=== PATIENT | female | born 1995 | race Caucasian/White ===

== ENCOUNTER 2019-11-15 01:06 | Inpatient (IN) | payer BC ==
[~2019-11-15] VITALS: Ht 160 cm; Wt 72.3 kg
[2019-11-15] VITALS (19 sets, daily range): BP systolic 105–146; BP diastolic 49–80; PULSE 72–123; TEMP 98–98.4
--- NOTE | 2019-11-15 00:20 | NUR ---
G1 at 40 weeks gestation to LDR5 with c/o contractions and SROM at 2230. Patient changed into gown and wedged to left side in bed. EFMs explained and applied. FHR 140 bpm and reactive. CTX q3-5 minutes apart, patient breathing through them. VSS. SVE 5/90/-2 with moderate amount of clear fluid noted. Assessment completed. Plan of care reviewed with patient and spouse.
--- NOTE | 2019-11-15 01:51 | NUR ---
0140 FEMI Connolly to room to place epidural. Patient sits upright on the edge of the bed. FHR difficult to monitor in this position and intermittently traces maternal HR as it coorelates with maternal spO2 tracing. 0151 Single shot by FEMI Connolly. See anesthesia record for details.
[2019-11-15] MEDS ORDERED: PRENATAL TABLET PO (02:40)
[2019-11-15 03:03] LABS: BASO % 0.4 % (0.0-2.0); EOS # 0.1 (0.0-0.7); EOS % 0.5 % (0-4.0); GRAN # 7.6 (1.4-6.5); GRAN % 70.5 % (42.2-75.2); HEMATOCRIT 39.2 % (37.0-47.0); HEMOGLOBIN 13.7 g/dl (12.5-16.0); LYMPH # 2.2 (1.2-3.4); LYMPH % 20.7 % (20.0-51.0); MEAN CELL VOLUME 94 fl (80.0-100.0); MEAN CORPUSCULAR HEMOGLOBIN 33 pg (27.0-31.0); MEAN CORPUSCULAR HGB CONC 35 g/dl (33.0-37.0); MEAN PLATELET VOLUME 10.7 fl (7.4-10.4); MONO # 0.8 (0.1-0.6); MONO % 7.4 % (1.7-9.3); PLATELET COUNT 226 K/mm3 (130-400); RED BLOOD COUNT 4.18 M/mm3 (4.10-5.30); REDCELL DISTRIBUTION WIDTH-CV 11.7 % (11.5-14.5)
--- NOTE | 2019-11-15 03:10 | NUR ---
Recurrent late FHR decelerations continue. 0305 SVE - complete/+2. Patient pushes with contraction, after pushing FHR down to 60 bpm for 3 minutes with a gradual return to baseline over the next [address] Erwin called and updated. He is on his way to the hospital.
--- NOTE | 2019-11-15 03:59 | NUR ---
0325 Patient pushing with contractions. 0335 Dr. Erwin on unit. Reviews FHR tracing and pushing efforts, remains on unit. Patient continues to push with contractions. 0350 Dr. Erwin to room for delivery, patient prepped. 0359 Spontaneous vaginal delivery of viable female by Dr. Erwin. Cord clamped and cut and to the care of the nursery RN. 0407 Spontaneous delivery of placenta by Dr. Erwin. Pitocin infusing at 333ml/hr per orders and protocol. Fundus firm, lochia WNL. Repair of 2nd degree perineal laceration and bilateral labial lacerations by Dr. Erwin.
--- NOTE | 2019-11-15 18:45 | NUR ---
Report recieved at 1845. Pt denied bedside shift report. Informed pt was going to attempt to breastfeed during report. At 1900 introduced self to pt and updated whiteboard. Reports going to attempt to breastfeed. VS obtaind and assessment completed. Motrin administered per request. Denied further questions or concerns.
[2019-11-16] VITALS: BP 128/77; PULSE 85; TEMP 98.4
[2019-11-16 08:40] VITALS: BP 118/73; PULSE 91; TEMP 98.1
[2019-11-16] MEDS ORDERED: IBU600 MG PO (08:49)
--- NOTE | 2019-11-16 09:10 | NUR ---
Initial visit; Parents thanked Grain Commodity Manager for offering congratulations and God's blessings for the of their daughter. Grain Commodity Manager thanked family for choosing [facility].
== END 2019-11-16 12:50 | disposition home or self-care (01) | DRG 807 ==
LOC: LDRO 01:06 → LDR 02:38 → OB 06:30
PROVIDERS: ADMIT Obstetrics & Gynecology
PROC: 10E0XZZ Delivery of Products of Conception, External Approach (ICD-10-PCS; principal; 2019-11-15)
PROC: 0KQM0ZZ Repair Perineum Muscle, Open Approach (ICD-10-PCS; 2019-11-15)
DX: O70.0 First degree perineal laceration during delivery (principal); Z37.0 Single live birth; Z3A.40 40 weeks gestation of pregnancy
CPT/HCPCS: J2590; J7120

== ENCOUNTER 2021-05-11 10:27 | Inpatient (IN) | payer BC ==
[2021-05-11] VITALS (13 sets, daily range): BP systolic 106–124; BP diastolic 51–79; PULSE 64–102; TEMP 97.7–98.4
[~2021-05-11] VITALS: Ht 160 cm; Wt 75.9 kg
[~2021-05-11 10:27] MED LIST: IBU600 MG PO; PRENATAL TABLET PO
[2021-05-11 11:00] LABS: BASO # 0.1 K/mm3 (0.0-0.2); BASO % 0.4 % (0.0-2.0); EOS % 0.3 % (0.0-4.0); GRAN # 9.9 K/mm3 (1.4-6.5); GRAN % 81.9 % (42.2-75.2); HEMATOCRIT 37.3 % (37.0-47.0); HEMOGLOBIN 12.9 g/dl (12.5-16.0); LYMPH # 1.5 K/mm3 (1.2-3.4); LYMPH % 12.5 % (20.0-51.0); MEAN CELL VOLUME 89 fl (80.0-100.0); MEAN CORPUSCULAR HEMOGLOBIN 31 pg (27-31); MEAN CORPUSCULAR HGB CONC 35 g/dl (33.0-37.0); MEAN PLATELET VOLUME 10.1 fl (7.4-10.4); MONO # 0.6 K/mm3 (0.1-0.6); MONO % 4.6 % (1.7-9.3); PLATELET COUNT 215 K/mm3 (130-400); RED BLOOD COUNT 4.19 M/mm3 (4.10-5.30); REDCELL DISTRIBUTION WIDTH-CV 11.9 % (11.5-14.5)
--- NOTE | 2021-05-11 12:20 | NUR ---
1040 PATIENT HERE FOR COMPLAINTS THAT CONTRACTIONS HAVE GOT MUCH MORE INTENSE AND FEELING PRESSURE ALSO. SVE 7/100/0 BULGY BAG NOTED. EFM ON FHT 150 BABY VERY ACTIVE AND ACCELERATIONS NOTED. DR WILKINS UPDATED AND ORDERS GIVEN.
--- NOTE | 2021-05-11 12:51 | NUR ---
1045 IV STARTED IN LEFT WRIST. LR STARTED AT THIS TIME. Tre JOHNSON CRNA AT BEDSIDE FOR EPIDURAL PLACEMENT. SITS UP ON EDGE OF BED. TOLERATES WELL. SINGLE SHOT GIVEN BY DRAW OPERATOR AT 1055
--- NOTE | 2021-05-11 12:59 | NUR ---
1110 DR WILKINS AT BEDSIDE AROM WITH AMNIOHOOK. MECONIUM FLUID NOTED AT THIS TIME. RICHARD PLACED BY THIS NURSE.
--- NOTE | 2021-05-11 13:22 | NUR ---
1125 PEANUT BALL PLACED PATIENT LL AT THIS TIME. 1130 SVE COMPLETE/100/+2 DR WILKINS CALLED TO ROOM AT THIS TIME FOR DELIVERY. PATIENT FEELING TONS OF PRESSURE. FHT 130 WITH VARIABLES NOTED WITH EACH CONTRACTION. 1132 DR WILKINS AT BEDSIDE. PREP PATIENT FOR DELIVERY. WILL PUSH WITH EACH CONTRACTION. 1135 BABY BOY DELIVERED WITH HAND BY HEAD AND NUCHAL TIMES ONE THAT WAS CLAMPED AND CUT BY DR WILKINS. BABY TO MOM CHEST SKIN TO SKIN. STRONG CRY NOTED. 1137 PLACENTA DELIVERED AT THIS TIME AND PITOCIN STARTED AT 333 PER PROTOCOL. FUNDUS FIRM AND BLEEDING WNL. NO REPAIR DONE AT THS TIME. BABY REMAINS SKIN TO SKIN AT THIS TIEM.
--- NOTE | 2021-05-11 15:27 | NUR ---
1500 REPORT GIVEN TO Jessica VARGAS LPN TO ASSUME CARE AT THIS TIME. LEGS REMIAN NUMB AT THIS TIME FROM EPIDURAL SO UNABLE TO MOVE TO ROOM AT THIS TIME
[2021-05-12 04:30] VITALS: BP 100/72; PULSE 76; TEMP 97.7
[2021-05-12 07:43] VITALS: BP 88/52; PULSE 76; TEMP 98.1
[2021-05-12] MEDS ORDERED: IBU800 M1 PO (09:46)
== END 2021-05-12 16:43 | disposition home or self-care (01) | DRG 807 ==
LOC: LDRO 10:27 → LDR 10:49 → OB 10:49
PROVIDERS: ADMIT Obstetrics & Gynecology
PROC: 10E0XZZ Delivery of Products of Conception, External Approach (ICD-10-PCS; principal; 2021-05-11)
DX: O77.0 Labor and delivery complicated by meconium in amniotic fluid (principal); Z37.0 Single live birth; O69.1XX0 Labor and delivery complicated by cord around neck, with compression, not applicable or unspecified; Z3A.39 39 weeks gestation of pregnancy
CPT/HCPCS: J2590; J7120

== ENCOUNTER 2023-11-15 06:25 | Inpatient (IN) | payer BC, OTHER ==
[~2023-11-15] VITALS: Ht 160 cm; Wt 77.7 kg
[2023-11-15] VITALS (30 sets, daily range): BP systolic 101–1223; BP diastolic 51–89; PULSE 61–103; TEMP 98–98.7
[~2023-11-15 06:25] MED LIST changes: +IBU800 M1 PO
--- NOTE | 2023-11-15 06:30 | NUR ---
0630PT AMBULATORY TO UNIT WITH SPOUSE AND SISTER FOR SCHEDULED INDUCTION. PT CHANGED INTO GOWN. PT COMFORTABLE IN BED. 0635THIS RN AT BEDSIDE TO PLACE TOCO AND EFM. EFM TRACING CAT I. POSITIVE ACCELS NOTED. NO DECELS NOTED. PT REPORTS POSITIVE MOVEMENT. PT REPORTS FEELING THE OCCASIONAL CTX, BUT NOTHING REGULAR. PT DENIES LOF AND DENIES VAGINAL BLEEDING. PT VITAL SIGNS STABLE. 0645THIS RN DISCUSSES POC WITH PT AND SPOUSE. PT REPORTS UNDERSTANDING AND AGREEMENT. 0705IV STARTED PER THIS RN IN RIGHT WRIST. 0710FIRST BAG OF IVF STARTED. FIRST DOES OF PENICILLIN G STARTED. 0720SVE PER THIS RN. /-3. PT TOLERATED WELL. 0722PITOCIN STARTED AT THIS TIME.
[2023-11-15] MEDS ORDERED: LR & Oxytocin 500 ML IV SCH ×2 (06:45)
[2023-11-15] MEDS ORDERED: LR 1,000 ML IV SCH ×2 (06:45→07:30)
[2023-11-15] MEDS ORDERED: Penicillin G Potassium 5,000,000 UNITS in NS 100 ML IV ONE (06:45)
[2023-11-15] MEDS ORDERED: Penicillin G Potassium 2,500,000 UNITS in NS 100 ML IV SCH ×2 (06:45→10:32)
[2023-11-15 07:29] LABS: BASO % 0.6 % (0.0-2.0); EOS # 0.1 K/mm3 (0.0-0.7); EOS % 1.1 % (0.0-4.0); GRAN # 5.2 K/mm3 (1.4-6.5); GRAN % 73.6 % (42.2-75.2); HEMOGLOBIN 12.3 g/dl (12.5-16.0); LYMPH # 1.2 K/mm3 (1.2-3.4); LYMPH % 17.4 % (20.0-51.0); MEAN CELL VOLUME 92 fl (80.0-100.0); MEAN CORPUSCULAR HEMOGLOBIN 32 pg (27-31); MEAN CORPUSCULAR HGB CONC 35 g/dl (33.0-37.0); MEAN PLATELET VOLUME 9.8 fl (7.4-10.4); MONO # 0.5 K/mm3 (0.1-0.6); MONO % 6.7 % (1.7-9.3); PLATELET COUNT 179 K/mm3 (130-400); RED BLOOD COUNT 3.86 M/mm3 (4.10-5.30); REDCELL DISTRIBUTION WIDTH-CV 12.3 % (11.5-14.5)
[2023-11-15 07:30] LABS: HEMATOCRIT 35.5 % (37.0-47.0)
--- NOTE | 2023-11-15 10:25 | NUR ---
1010-1025PT AMBULATORY IN HALLS ACCOMPANIED BY SPOUSE. EFM DIFFICULT TO TRACE DUE TO MOVEMENT. 1025PT STANDING AT SIDE OF BED. EFM TRACING CAT I.
[2023-11-15] MEDS ORDERED: ePHEDrine 50 MG/10 ML VIAL IV PRN (10:30)
[2023-11-15] MEDS ORDERED: Ondansetron 4 MG/2 ML VIAL IV PRN (10:30)
[2023-11-15] MEDS ORDERED: diphenhydrAMINE 25 MG CAP PO PRN (10:30)
[2023-11-15] MEDS ORDERED: diphenhydrAMINE 50 MG/ML 1 ML VIAL IV PRN (10:30)
[2023-11-15] MEDS ORDERED: Naloxone 0.4 MG/ML VIAL IV PRN ×2 (10:30→13:15)
--- NOTE | 2023-11-15 11:01 | NUR ---
1052DUANE FLOORPERSON NOTIFIED OF PT REQUEST FOR EPIDURAL. 1053SECOND BAG OF IVF STARTED. 1056DUANE FLOORPERSON AT BEDSIDE. PT SITTING ON SIDE OF BED. PT VITAL SIGNS STABLE. PULSE OX PLACED. 1101TEST DOSE ADMINISTERED AT THIS TIME PER JENNIFER KAHN. PT TOLERATED WELL. 1105PT BACK TO BED. PT POSITIONED WEDGE LEFT. 1110PT COMFORTABLE WITH CTX.
[2023-11-15] MEDS ORDERED: ROPivacaine PF 0.2% 200 ML IV ONE (11:10)
--- NOTE | 2023-11-15 11:22 | NUR ---
1120DR IBRAHIMA AT BEDSIDE. DISCUSSES POC WITH PT. PT VERBALIZES UNDERSTANDING. 1122SVE PER DR ALEXANDRA. -/-2. AROM AT THIS TIME PER DR ALEXANDRA. MODERATE AMOUNT OF CLEAR FLUID NOTED. PT TOLERATED WELL.
--- NOTE | 2023-11-15 12:15 | NUR ---
1210THIS RN AT BEDSIDE. DISCUSSES POC WITH PT. PT VERBALIZES UNDERSTANDING. 1215FOLEY PLACED AT THIS TIME PER THIS RN. SVE PER THIS RN. . PT TOLERATED WELL. PT VITAL SIGNS STABLE. EFM TRACING CAT I, WITH RECURRENT EARLY DECELS.
--- NOTE | 2023-11-15 12:57 | NUR ---
1242PT CALLS OUT STATING SHE FEELS QUITE A BIT OF RECTAL PRESSURE. 1245SVE PER THIS RN. /+1. DR ALEXANDRA NOTIFIED AND ON HIS WAY. NURSERY AND CHARGE NURSES NOTIFIED. 1248PITOCIN TURNED OFF. ROOM SET UP FOR DELIVERY. 1253DR IBRAHIMA ON UNIT. NURSERY AND CHARGE NURSES AT BEDSIDE. 1254DR IBRAHIMA AT BEDSIDE. RICHARD REMOVED PER THIS RN. ROOM AND PT SET UP FOR IMPENDING DELIVERY. 1256DR IBRAHIMA AND THIS RN PUSHING WITH PT AT THIS TIME. GOOD MATERNAL EFFORT NOTED. 1257SVD OF VIABLE MALE PER DR ALEXANDRA. INFANT PLACED ON MATERNAL ABDOMEN. CARE ASSUMED BY NURSERY. 1301SVD OF PLACENTA PER DR ALEXANDRA. PERINEUM INTACT. FUNDUS FIRM AT U. LOCHIA WNL. 1304BED AND ROOM PUT BACK TOGETHER. PERICARE PERFORMED. ICE PACK PLACED ON PERINEUM. PT COMFORTABLE IN BED. FUNDUS FIRM AT U. LOCHIA WNL. PT VITAL SIGNS STABLE.
[2023-11-15] MEDS ORDERED: Tdap Vaccine 0.5 ML SYRINGE IM SCH (13:15)
[2023-11-15] MEDS ORDERED: Measles/Mumps/Rubella Virus Vaccine Live w Diluent 0.5 ML VIAL SQ SCH (13:15)
[2023-11-15] MEDS ORDERED: Witch Hazel 50% Pads Bulk TUB TP PRN (13:15)
[2023-11-15] MEDS ORDERED: Loratadine 10 MG TAB PO PRN (13:15)
[2023-11-15] MEDS ORDERED: Acetaminophen 500 MG TAB PO SCH (13:15)
[2023-11-15] MEDS ORDERED: Ibuprofen 600 MG TAB PO SCH (13:15)
[2023-11-15] MEDS ORDERED: oxyCODONE 5 MG TAB PO PRN (13:15)
[2023-11-15] MEDS ORDERED: Mag/Al Hydrox/Simeth Susp 30 ML CUP PO PRN (13:15)
[2023-11-15] MEDS ORDERED: Phenylephrine/Mineral Oil/Petrolatum 57 GM TUBE RC PRN (13:15)
[2023-11-15] MEDS ORDERED: Magnes Hydrox (MOM) 80 MG/ML 30 ML CUP PO PRN (13:15)
--- NOTE | 2023-11-15 15:30 | NUR ---
1515THIS RN AT BEDSIDE. THIS RN ASSESSES PT'S LEG STATUS. 1520PT AMBULATORY TO BATHROOM. STEADY GAIT. STANDBY ASSIST BY THIS RN. PT VOIDS AT THIS TIME. PT PERFORMS PERICARE. ORANGE PAD, ICE PACK, WITCH MARIE PADS PLACED WITH MESH UNDERWEAR. PT WASHES HANDS. RN REMOVES EPIDURAL CATHETER. TIP INTACT. PT TOLERATED WELL. 1525PT AND SPOUSE AMBULATORY TO ROOM 218 WITH THIS RN. RN ORIENTS PT TO ROOM, MENU, CALL LIGHT, AND BATHROOM. EDUCATION PACKET GIVEN AND REVIEWED. PT VERBALIZES UNDERSTANDING.
[2023-11-15] MEDS ORDERED: Sennosides/Docusate 8.6-50 MG TAB PO SCH (17:00)
[2023-11-15] MEDS ORDERED: traZODone 50 MG TAB PO PRN (21:00)
[2023-11-16 04:30] VITALS: BP 95/65; PULSE 64; TEMP 98.1
[2023-11-16 08:15] VITALS: BP 96/60; PULSE 84; TEMP 98.2
--- NOTE | 2023-11-16 09:34 | NUR ---
Initial visit; Parents thanked Magnetic Prospecting Supervisor for offering congratulations and God's blessings for the of their son. Magnetic Prospecting Supervisor thanked family for choosing [facility].
== END 2023-11-16 15:20 | disposition home or self-care (01) | DRG 807 ==
LOC: LDR 06:25 → OB 07:23
PROVIDERS: ADMIT Obstetrics & Gynecology
PROC: 10E0XZZ Delivery of Products of Conception, External Approach (ICD-10-PCS; principal; 2023-11-15)
PROC: 3E033VJ Introduction of Other Hormone into Peripheral Vein, Percutaneous Approach (ICD-10-PCS; 2023-11-15)
DX: O99.824 Streptococcus B carrier state complicating childbirth (principal); Z37.0 Single live birth; O36.5930 Maternal care for other known or suspected poor fetal growth, third trimester, not applicable or unspecified; Z3A.38 38 weeks gestation of pregnancy
CPT/HCPCS: J2540; J2590; J2795; J7120